=== PATIENT | female | born 1995 | race Caucasian/White ===

== ENCOUNTER 2018-02-02 22:03 | Emergency (ER) | END 2018-02-03 01:40 | disposition home or self-care (01) ==

== ENCOUNTER 2018-02-05 11:58 | Emergency (ER) | END 2018-02-05 16:05 | disposition home or self-care (01) ==

== ENCOUNTER 2018-02-06 04:06 | Emergency (ER) | END 2018-02-06 05:04 | disposition home or self-care (01) ==

== ENCOUNTER 2019-01-19 14:51 | Inpatient (IN) | payer MEDICAID ==
[~2019-01-19] VITALS: Ht 149.9 cm; Wt 69.7 kg
[~2019-01-19 14:51] MED LIST: ACET500C5 PO; CEPH-443 PO; EPHEDrine 25 MG/5 ML SYG ONE; HYDR-3980 PO; ONDA4TAB14 PO; OXYTOCIN 30 UNITS/LR 500 ML BAG IV ONE; PHENYLephrine (100 MCG/ML) 10ML SYG ONE
[2019-01-19] MEDS ORDERED: CARBOPROST 250 MCG INJ IM PRN ×2 (17:00→21:30)
[2019-01-19] MEDS ORDERED: CEFAZOLIN 2 GM/50 ML (PMX) 50 ML IVPB SCH (17:00)
[2019-01-19] MEDS ORDERED: OXYTOCIN 30 UNITS/LR 500 ML IV SCH ×2 (17:00→21:28)
[2019-01-19] MEDS ORDERED: MISOPROSTOL 200 MCG TAB PR PRN ×2 (17:00→21:30)
[2019-01-19] MEDS ORDERED: METHYLERGONOVINE 0.2 MG INJ IM PRN ×2 (17:00→21:30)
[2019-01-19] MEDS ORDERED: OXYTOCIN 30 UNITS/LR 500 ML IV PRN ×2 (17:00→21:30)
[2019-01-19] MEDS ORDERED: SOD CHLORIDE 0.9% 1,000 ML IV SCH (17:00)
[2019-01-19] MEDS ORDERED: CEFTRIAXONE 2 GM/50 ML (PMX) 50 ML IVPB ONE (17:00)
[2019-01-19] MEDS: LACTATED RINGER'S 1,000 ML IV SCH ×2 (17:16→19:36)
[2019-01-19 17:17] VITALS: Ht 149.9 cm; Wt 69.7 kg
[2019-01-19 17:20] VITALS: BP 132/82; PULSE 86; RESP 18
--- NOTE | 2019-01-19 18:27 | PREOPHP ---
DATE OF ADMISSION: 01/19/2019 HISTORY OF PRESENT ILLNESS: Ms. Eloisa Costa is a 23-year-old 1, para 0, EDC of 0 01/16/2019 intrauterine at 40 weeks and 3 days gestational age, was sent from the clinic afshin mendoza to rule out labor. She had a biophysical profile which was 8/8 with an LEEROY of 16.4 with estimated weight of 3780 grams consistent with approximately 8.5 pounds fetus. The patient is not in la bor; however desires elective delivery, maternal request. The patient explained that the es timated weight is just an approximation and may well be below the actual weight that the radiol ogist reported; however, she insists on a delivery after the risks, benefits and alternative s were explained. She had her care at [facility]. PAST MEDICAL HISTORY: None. MEDICATIONS: vitamins. PAST SURGICAL HISTORY: None. OBSTETRIC HISTORY: Prima . GYNECOLOGIC HISTORY: 11, regular 3 to 4 days. Denies any sexually transmitted disease. Sexually ac tive with 1 partner. SOCIAL HISTORY: Denies any smoking, drugs or alcohol. FAMILY HISTORY: None. REVIEW OF SYSTEMS: All within normal except history of present illness. PHYSICAL EXAMINATION: GENERAL: The patient is a well-nourished. VITAL SIGNS: Height is 4 feet, 11 inches. HEENT: Within normal. LUNGS: CTA bilateral. CARDIOVASCULAR: S1, S2. Regular rate, rhythm. ABDOMEN: Gravid, nontender. Negative CVA bilateral. EXTREMITIES: Negative. No calf tenderness. PELVIC: Vaginal exam: Short and closed. heart tracing category 1. [place]: Occasional contrac tions. ASSESSMENT: Intrauterine at 40 weeks and 3 days gestational age with a short stature, umang res elective delivery, maternal request. PLAN: Consent for a primary . Risks, benefits and alternatives were explained. All questi ons were answered. Dictated By: NORRIS COVARRUBIAS/SRIKANTH Conf#: [id number] DID#: [id number]
--- NOTE | 2019-01-19 19:11 | PREAC ---
Date/Time of Note Date/Time of Note DATE: 01/19/19 TIME: 19:10 Anesthesia Eval and Record Evaluation Time Pre-Procedure Interview DATE: 01/19/19 TIME: 19:10 Age 23 Sex female NPO: 8 hrs Preoperative diagnosis Planned procedure c/s Past Medical History Past Medical History: None Surgery & Anesthesia Issues No known issue Meds Anticoagulation: No Beta Osorio within 24 hr: No Reason Beta Osorio not given: Pt. not on B-Osorio Active Scripts Ondansetron (Ondansetron Odt) 4 Mg Tab.rapdis, 4 MG PO Q6H PRN for NAUSEA AND/OR VOMITING, #10 TAB Prov:MELLISSA ROBLEDO MD 02/06/18 Hydrocodone/Acetaminophen ([place] 10-325 Tablet) 1 Each Tablet, 1 TAB PO Q6H PRN for PAIN, #10 TAB Prov:MELLISSA ROBLEDO MD 02/06/18 Acetaminophen* (Tylophen*) 500 Mg Capsule, 1 CAP PO Q6H PRN for PAIN AND OR ELEVATED TEMP, #15 CAP Prov:JEF COTTON MD 02/05/18 Cephalexin* (Keflex*) 500 Mg Capsule, 500 MG PO QID for 5 Days, CAP Prov:RONAN AGUIRRE PA-C 02/03/18 Current Medications Lactated Ringer's 1,000 ml @ 125 mls/hr Q8H IV Last administered on 01/19/19at 17:16; Admin Dose 125 MLS/HR; Start 01/19/19 at 16:44 Cefazolin Sodium/ Dextrose 50 ml @ 100 mls/hr ONCE IVPB ; Start 01/19/19 at 17:00 Oxytocin/Lactated Ringer's 500 ml @ 125 mls/hr POST IV ; Start 01/19/19 at 17:00 Oxytocin/Lactated Ringer's 500 ml @ 0 mls/hr ONCE PRN IV .VAGINAL BLEEDING; Start 01/19/19 at 17:00 Methylergonovine Maleate (Methergine) 0.2 mg ONCE PRN IM .VAGINAL BLEEDING; Start 01/19/19 at 17:00 Carboprost Tromethamine (Hemabate) 250 mcg ONCE PRN IM .VAGINAL BLEEDING; Start 01/19/19 at 17:00 Misoprostol (Cytotec) 1,000 mcg ONCE PRN UT .VAGINAL BLEEDING; Start 01/19/19 at 17:00 Sodium Chloride 1,000 ml @ 125 mls/hr Q8H IV Last administered on 01/19/19at 17:18; Admin Dose 125 MLS/HR; Start 01/19/19 at 17:00 Meds reviewed: Yes Allergies Coded Allergies: No Known Drug Allergies (Verified Allergy, Unknown, 02/02/18) Allergies Reviewed: Yes Labs/Studies Labs Reviewed: Reviewed by anesthesiologist Result Diagram: 01/19/19 1700 Laboratory Tests 01/19/19 17:00 Blood Bank Test 01/19/19 17:00 Antibody Screen NEGATIVE Blood Type O POSITIVE Rh Immune Globulin Candidate NO test: Positive Pre-procedure Exam Last vitals Vital Signs Date Temp Pulse Resp B/P (MAP) Pulse Ox O2 O2 Flow FiO2 Time Delivery Rate 01/19/19 98.3 86 18 132/82 Room Air 17:20 (99) Airway: Adequate mouth opening, Adequate thyromental dist Mallampati: Mallampati II Teeth: Normal Lung: Normal Heart: Normal ASA Physical Status ASA physical status: 2 Emergency: None Planned Anesthetic Neuraxial: Spinal Planned Pain Management Sub-arachniod narcotics Pre-operative Attestations Prior to commencing anesthesia and surgery, the patient was re-evaluated, there was verification of: *The patient's identity *The results of appropriate recent lab work and preoperative vital signs *The above evaluation not changing prior to induction *Anesthetic plan, risk benefits, alternative and complications discussed with patient/family; questions answered; patient/family understands, accepts and wishes to proceed. BEATRIZ MENESES Jan 19, 2019 19:11
[2019-01-19] MEDS ORDERED: METOCLOPRAMIDE 10 MG INJ ONE (20:05)
[2019-01-19] MEDS ORDERED: ONDANSETRON 4 MG INJ ONE (20:05)
[2019-01-19] MEDS ORDERED: morphine SULFATE/PF (10 MG/10 ML) INJ ONE (20:36)
[2019-01-19] MEDS ORDERED: FENTAnyl 50 MCG/ML VIAL ONE (21:17)
--- NOTE | 2019-01-19 21:27 | OPPN ---
Date/Time of Note Date/Time of Note DATE: 01/19/19 TIME: 21:26 Operative Report Planned Procedure Procedure date Jan 19, 2019 Procedure(s) primary low transverse CD Performed by see signature line Security Incident Handler: RUBA EVANS MD 2nd Security Incident Handler none Anesthesiologist: BEATRIZ MENESES Pre-procedure diagnosis Intrauterine at 40 weeks and 3 days gestational age with a short stature, desires elective delivery, maternal request. [id number] Anesthesia Type: Aglkj1i spinal Post-Procedure Post-procedure diagnosis same Findings a viable female 8/9 weight 6lb 12 oz. normal uterus tubes and ovaries Estimated Blood Loss: 500 - 600 mls (500) Specimen(s) none Grafts/Implant(s) none Complication(s) none NORRIS UP MD Jan 19, 2019 21:27
[2019-01-19] MEDS ORDERED: LANOLIN HPA 1 PKT TOP PRN (21:30)
[2019-01-19] MEDS ORDERED: NACL 0.9% 3 ML SYG IV SCH (21:30)
--- NOTE | 2019-01-19 22:22 | PAC ---
Date/Time of Note Date/Time of Note DATE: 01/19/19 TIME: 22:22 Post-Anesthesia Notes Post-Anesthesia Note Last documented vital signs Vital Signs Date Temp Pulse Resp B/P (MAP) Pulse Ox O2 O2 Flow FiO2 Time Delivery Rate 01/19/19 98.3 86 18 132/82 Room Air 17:20 (99) Activity: WNL Respiratory function: WNL Cardiovascular function: WNL Mental status: Baseline Pain reasonably controlled: Yes Hydration appropriate: Yes Nausea/Vomiting absent: Yes BEATRIZ MENESES Jan 19, 2019 22:22
[2019-01-19] MEDS ORDERED: KETOROLAC 30 MG INJ IV PRN (22:30)
[2019-01-19] MEDS ORDERED: ALBUTEROL 0.083% (NEB) 2.5 MG/3 ML AMP HHN PRN (22:30)
[2019-01-19] MEDS ORDERED: HYDROmorphONE 0.5 MG/0.5 ML SYG IV PRN ×2 (22:30)
[2019-01-19] MEDS ORDERED: METOCLOPRAMIDE 10 MG INJ IV PRN (22:30)
[2019-01-19] MEDS ORDERED: FENTAnyl 50 MCG/ML VIAL IV PRN ×3 (22:30)
[2019-01-19] MEDS ORDERED: ONDANSETRON 4 MG INJ IV PRN ×2 (22:30)
[2019-01-19] MEDS ORDERED: HYDROmorphONE 1 MG/5 ML IV SYRINGE IV PRN ×3 (22:30)
[2019-01-19] MEDS ORDERED: NALOXONE (0.4 MG/ML) INJ IV PRN (22:30)
[2019-01-19] MEDS ORDERED: DIPHENHYDRAMINE 50 MG INJ IV PRN ×2 (22:30)
[2019-01-20] VITALS (7 sets, daily range): BP systolic 96–135; BP diastolic 52–77; PULSE 65–107; RESP 16–20
[2019-01-20] MEDS: KETOROLAC 30 MG INJ IV PRN ×2 (00:44→18:27)
[2019-01-20] MEDS ORDERED: CEFAZOLIN 2 GM/50 ML (PMX) 50 ML IVPB SCH (01:00)
[2019-01-20] MEDS: CEFAZOLIN 2 GM/50 ML (PMX) 50 ML IVPB SCH ×3 (03:43→20:34)
[2019-01-20] MEDS: SENNA/DOCUSATE NA (8.6MG/50MG) TAB PO SCH ×2 (09:09→20:34)
[2019-01-20] MEDS: LACTATED RINGER'S 1,000 ML IV SCH ×2 (10:19→16:44)
--- NOTE | 2019-01-20 14:24 | QN ---
Documentation Comment progress note patient seen and evaluated no complaints vs stable afebrile ab dressing clean/dry extremity no edema no calf tenderness a/ sp cd pod 1 stable afebrile p/ encourage ambulation NORRIS UP MD Jan 20, 2019 14:24
--- NOTE | 2019-01-20 18:55 | OPR ---
DATE OF OPERATION: 01/20/2019 PRIMARY DIAGNOSES: 1. Intrauterine at 40 weeks and 3 days gestational age. 2. Short stature. 3. Desires elective delivery, maternal request. POSTOPERATIVE DIAGNOSES: 1. Intrauterine at 40 weeks and 3 days gestational age. 2. Short stature. 3. Desires elective delivery, maternal request. PROCEDURE: Primary low transverse delivery. SURGEON: Eliceo Teran MD EMERGENCY DEPARTMENT: Silas Dueñas MD ANESTHESIA: Spinal. COMPLICATIONS: None. ESTIMATED BLOOD LOSS: 500 mL. FINDINGS: A viable female, 8 and 9 respectively at 1 and 5 minutes, weight 6 pounds and 12 oun chinmay; normal uterus, tubes and ovaries. DESCRIPTION OF PROCEDURE: After explaining the risks, benefits and alternatives, the patient and con sent signed in chart, the patient was taken to the operating room where spinal anesthesia was found t o be adequate. She was then prepared and draped in normal sterile fashion in dorsal supine position with a leftward tilt. A Pfannenstiel skin incision was then made with a scalpel and carried to the u nderlying of the fascia. The fascia was incised in midline. Incision was extended laterally with Ma yo scissors. The superior aspect of the fascial incision was grasped with curved clamps, elevated an d underlying rectus muscles were dissected off bluntly. Attention was then turned to the inferior as pect of incision, which in similar fashion was grasped, tented up with curved clamps and rectus muscl e was dissected off bluntly. The rectus muscles were in midline, peritoneum identified, te nted up sharply with Metzenbaum scissors. The peritoneal incision was extended superiorly with good visualization of bladder. The bladder blade was able to be inserted in the uterine segment and a low er uterine segment incision is incised in a transverse fashion with the scalpel. The uterine incisio n was extended laterally. The bladder blade was removed and the 's head was delivered atraumat ically. The nose and mouth were suctioned, cord clamped and cut. The was handed off to await ing home care giver. The placenta was then removed. The uterus was extracted of all clots and debris. The uterine incision was repaired with 1-0 chromic in a running locked fashion. A second layer of s genny suture was used for imbrication, obtaining excellent hemostasis. The uterus was returned to the abdomen. The gutters were cleared of clots. The peritoneum and rectus abdominis muscles were reappr oximated with 3-0 Vicryl in interrupted fashion. The fascia was reapproximated with 0 Vicryl in a ru nning fashion. The subcutaneous tissue was reapproximated with 2-0 plain gut in a running fashion. The skin was closed with absorbable joanie. The patient tolerated procedure well. Sponge, lap, nee dle counts were correct. The patient was taken to recovery room in stable condition. Dictated By: ELICEO COVARRUBIAS/SRIKANTH Conf#: [id number] DID#: [id number]
[2019-01-20] MEDS: OXYCODONE/ACETAMINOPHEN (5/325) TAB PO PRN (21:45)
[2019-01-20] MEDS: IBUPROFEN 600 MG TAB PO SCH (23:48)
[2019-01-21] MEDS: LACTATED RINGER'S 1,000 ML IV SCH ×3 (00:44→16:44)
[2019-01-21] MEDS: OXYCODONE/ACETAMINOPHEN (5/325) TAB PO PRN ×4 (03:16→21:00)
[2019-01-21 03:52] VITALS: BP 105/60; PULSE 80; RESP 20
[2019-01-21] MEDS: IBUPROFEN 600 MG TAB PO SCH ×3 (06:09→17:50)
--- NOTE | 2019-01-21 08:02 | QN ---
Documentation Comment progress note patient seen and evaluated no complaints vs stable afebrile ab incision c/d/i no distention extremity no edema no calf tenderness a/ sp cd pod 2 stable afebrile p/ discharge home tomorrow NORRIS UP MD Jan 21, 2019 08:02
--- NOTE | 2019-01-21 08:05 | PD.PPDC ---
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
[2019-01-21 08:30] VITALS: BP 101/55; PULSE 78; RESP 18
--- NOTE | 2019-01-21 09:08 | DS ---
DATE OF ADMISSION: 01/19/2019 DATE OF DISCHARGE: 01/19/2019 PRIMARY DIAGNOSIS: Intrauterine at 40 weeks and 3-day gestational age short stature, rebeca es elective delivery, maternal request. PROCEDURE: Primary low transverse delivery. CONDITION ON DISCHARGE: Stable. ACTIVITY: None per vagina, no lifting x6 weeks. DIET: Regular. MEDICATIONS ON DISCHARGE: Motrin 800 mg p.o. q. 8 hours p.r.n. severe pain. DISCHARGE SUMMARY: Ms. Jara underwent a primary delivery on 01/19/2019. She had a viable female, 8 and 9 respectively at 1 and 5 minutes, weight 6 pounds 12 ounces. She had an uneventful postop day 1 and 2. She was discharged on postop day 3. Her incision is clean, dry, and intact. She is ambulating, tolerating diet, positive voids, positive flatulence, positive bowel mov ement. She will follow up in the clinic in 2 weeks for /postop care. Dictated By: NORRIS COVARRUBIAS/SRIKANTH Conf#: [id number] DID#: [id number]
[2019-01-21] MEDS: SENNA/DOCUSATE NA (8.6MG/50MG) TAB PO SCH ×2 (10:05→20:59)
[2019-01-21 16:30] VITALS: BP 100/58; PULSE 77; RESP 18
[2019-01-21 20:00] VITALS: BP 121/62; PULSE 75; RESP 20
[2019-01-22] MEDS: IBUPROFEN 600 MG TAB PO SCH ×3 (00:25→12:42)
[2019-01-22] MEDS: LACTATED RINGER'S 1,000 ML IV SCH (00:44)
[2019-01-22] MEDS: OXYCODONE/ACETAMINOPHEN (5/325) TAB PO PRN ×2 (02:27→08:30)
[2019-01-22 02:33] VITALS: BP 102/61; PULSE 78; RESP 20
[2019-01-22 08:10] VITALS: BP 101/55; PULSE 76; RESP 18
[2019-01-22] MEDS: SENNA/DOCUSATE NA (8.6MG/50MG) TAB PO SCH (08:29)
--- NOTE | 2019-01-23 15:02 | DELSUM ---
Delivery Summary A-C Datetime Report Generated by CPN: 01/23/2019 15:02 DELIVERY PERSONNEL Health Educator: Matta, Usha MATERNAL INFORMATION Delivery Anesthesia: Spinal Medications in Delivery: SEE ANESTHESIA RECORD Delivery QBL (ml): 500 Placenta Cultured: No Maternal Complications: None LABOR SUMMARY EDC: 01/16/2019 00:00 No. Babies in Womb: 1 Attempted: No Labor Anesthesia: None LABOR INFORMATION Reason for Induction: Macrosomia Group B Beta Strep: Negative Antibiotics # of Doses: 2 Antibiotics Time of Last Dose: 01/19/2019 20:48 Steroids Given: None Reason Steroids Not Administered: Not Applicable MEMBRANES Membranes Rupture Method: Artificial Rupture of Membranes: 01/19/2019 21:00 Length of Rupture (hr): 0.03 Amniotic Fluid Color: Clear Amniotic Fluid Amount: Moderate STAGES OF LABOR Stage 3 hr: 0 Stage 3 min: 2 CSECTION DELIVERY Primary Indication: N/A Other Primary Indication: MACROSOMIA (Annotations: Data stored by [facility] on behalf of user) CSection Urgency: Non Elective CSection Incidence: Repeat Labor: No Labor Elective: Nonelective CSection Incision: Lower Uterine Transverse BABY A INFORMATION Delivery Date/Time: 01/19/2019 21:02 Method of Delivery: Born in Route : No : N/A Forceps: N/A Vacuum Extraction: N/A Shoulder Dystocia : N/A SHOULDER DYSTOCIA BABY A Infant Delivery Date/Time: 01/19/2019 21:02 PRESENTATION/POSITION BABY A Presentation: Cephalic Cephalic Presentation: Vertex Vertex Position: Left Occipital Anterior Breech Presentation: N/A PLACENTA INFORMATION BABY A Placenta Delivery Time : 01/19/2019 21:04 Placenta Method of Delivery: Manual Removal Placenta Status: Delivered SCORES BABY A Heart Rate 1 min: >100 bpm Resp Effort 1 min: Good Cry Reflex Irritability 1 min: Cough/Sneeze/Pulls Away Muscle Tone 1 min: Active Motion Color 1 min: Blue/Pale Resuscitation Effort 1 min: Tactile Stimulation SCORE 1 MIN: 8 Heart Rate 5 min: >100 bpm Resp Effort 5 min: Good Cry Reflex Irritability 5 min: Cough/Sneeze/Pulls Away Muscle Tone 5 min: Active Motion Color 5 min: Body [place], Extremit Blue Resuscitation Effort 5 min: Tactile Stimulation SCORE 5 MIN: 9 INFORMATION BABY A Gestational Age at Delivery: 40.3 Gestational Status: Full Term- 39- 40.6 Weeks Infant Outcome : Liveborn, with signs of life Infant Condition : Stable Infant Sex: Female IDENTIFICATION/MEDS BABY A ID Band Number: [id number] Sensor Number: [id number] WEIGHT/LENGTH BABY A Infant Birthweight (gm): 3055 Infant Weight (lb): 6 Infant Weight (oz): 12 Length (in): 19.25 Infant Length (cm): 48.90 CORD INFORMATION BABY A No. Cord Vessels: 3 Nuchal Cord : N/A Cord Blood Taken: Yes Infant Suction: Mouth; Nose ASSESSMENT BABY A Infant Complications: None Physical Findings at Delivery: Within Normal Limits Respirations: Appears Normal Manager Shift/ALS Called : No Transferred To: Remains with Mother
--- NOTE | 2019-01-24 09:50 | CONS ---
Consultation Date/Type/Reason Admit Date/Time Jan 19, 2019 at 16:45 Initial Consult Date 01/20/19 Type of Consult anesthesia Reason for Consultation follow up Date/Time of Note DATE: 01/24/19 TIME: 09:49 24 HR Interval Summary Free Text/Dictation pt seen and examined on 01/20/19 was POD#1 s/p c/s. Pt had received spinal duramorph for post op pain control and states she did not have pain. No GRIFFIN/Numbness in extremities. Exam/Review of Systems Exam Vitals Vital Signs Date Temp Pulse Resp B/P (MAP) Pulse Ox O2 O2 Flow FiO2 Time Delivery Rate 01/22/19 97.8 76 18 101/55 Room Air 08:10 (70) 01/20/19 94 08:00 Results Result Diagram: 01/20/19 0651 BEATRIZ MENESSE Jan 24, 2019 09:50
== END 2019-01-22 14:10 | disposition home or self-care (01) | DRG 788 ==
LOC: OBT 14:51 → L-D 14:52 → OBT 16:45 → L-D 19:25 → PP1 23:56
PROVIDERS: ADMIT Obstetrics & Gynecology; ATTEND Obstetrics & Gynecology
PROC: 3E033VJ Introduction of Other Hormone into Peripheral Vein, Percutaneous Approach (ICD-10-PCS; 2019-01-19)
PROC: 10D00Z1 Extraction of Products of Conception, Low, Open Approach (ICD-10-PCS; principal; 2019-01-19 16:45)
DX: O48.0 Post-term pregnancy (principal); Z3A.40 40 weeks gestation of pregnancy; Z37.0 Single live birth
CPT/HCPCS: 76815; 76818; 85025; 85610; 85730; 86592; 86850; 86900; 86901; 87340; 99464; G0463; J0690; J0696; J1885; J2210; J2274; J2370; J2405; J2590; J2765; J3010; J7030; J7120